=== PATIENT | male | born 1940 | race Caucasian/White ===

== ENCOUNTER 2018-09-18 12:22 | Emergency (ER) | payer MEDICARE, OTHER ==
[~2018-09-18] VITALS: Ht 182.9 cm; Wt 119.3 kg
[~2018-09-18 12:22] MED LIST: ALEVE220 MG PO; COUMADIN 5 MG TA5 M1 PO; GLUCOPHAGE XR750 MG PO; LOVENOX SC; MICARDIS HCT 41 EACH PO; MULTIVITAMINS PO; PALMETTO PO
[2018-09-18] MEDS ORDERED: BACTRIM DS TAB1 EACH PO (12:37)
[2018-09-18] MEDS ORDERED: KEFLEX500 M1 PO (12:37)
[2018-09-18] MEDS ORDERED: ELIQUIS5 MG PO (12:40)
[2018-09-18] MEDS ORDERED: TRADJENTA5 MG (12:41)
[2018-09-18] MEDS ORDERED: TELMISARTAN-HC1 EACH PO (12:42)
[2018-09-18 12:50] VITALS: BP 144/72
== END 2018-09-18 12:55 | disposition home or self-care (01) ==
LOC: M.ERS 12:22
DX: S50.811A Abrasion of right forearm, initial encounter (principal); L03.113 Cellulitis of right upper limb; X58.XXXA Exposure to other specified factors, initial encounter; Y93.89 Activity, other specified; Y92.89 Other specified places as the place of occurrence of the external cause; Y99.8 Other external cause status; I10 Essential (primary) hypertension; E11.9 Type 2 diabetes mellitus without complications; Z90.49 Acquired absence of other specified parts of digestive tract

== ENCOUNTER → 2020-12-04 | Outpatient (CLI) | payer MEDICARE ==
[~2020-12-04] MED LIST changes: +BACTRIM DS TAB1 EACH PO; +ELIQUIS5 MG PO; +KEFLEX500 M1 PO; +TELMISARTAN-HC1 EACH PO; +TRADJENTA5 MG
== END ==
LOC: M.RAD 13:38
PROVIDERS: ATTEND Family Medicine
DX: M47.817 Spondylosis without myelopathy or radiculopathy, lumbosacral region (principal); N20.0 Calculus of kidney; M54.5 Low back pain